=== PATIENT | male | born 1960 | race Caucasian/White ===

== ENCOUNTER 2016-07-25 10:55 | Emergency (ER) ==
[2016-07-25 11:04] VITALS: BP 122/75
[2016-07-25 11:26] LABS: MANUAL DIFF NEEDED? NO
[2016-07-25 11:27] LABS: BASO% 0.2 % (0.0-0.8); EOS# 0.08 X1000 (0.0-0.7); EOS% 0.5 % (0.0-10.0); HEMATOCRIT 42.1 % (42.0-52.0); HEMOGLOBIN 14.9 g/dL (14.0-18.0); IMM GRAN# 0.26 X1000 (0.0-0.04); IMM GRAN% 1.6 % (0.0-0.5); LYMPH% 8.1 % (20.5-51.1); MCH 31.2 PG (27-31); MCHC 35.4 g/dL (33-37); MCV 88.1 FL (81-99); MONO% 7.4 % (1.7-9.3); MPV 7.9 FL (7.4-10.4); NEUT% 82.2 % (42.2-75.2); PLT 323 X1000 (130-400); RBC 4.78 XMIL (4.7-6.1)
--- NOTE | 2016-07-25 11:56 | PROVIDER DOCUMENTATION ---
HPI-Respiratory General - General Source: patient - History of Present Illness-Resp Onset/Duration: reports: 1 week ago Timing: reports: still present Cough Quality/Degree: reports: mild, productive cough Associated Symptoms: reports: cough. denies: short of breath, wheezing <Melanie Roland - Last Filed: 07/25/16 14:02> <Anders Camargo - Last Filed: 07/25/16 14:07> - General Chief Complaint: Cough Stated Complaint: COLD SX Time Seen by Provider: 07/25/16 11:51 Allergies/Adverse Reactions: Patient Allergies Allergy/AdvReac Type Severity Reaction Status Date / Time No Known Allergies Allergy Verified 10/15/14 10:30 Home Medications: Home Medication List Medication Instructions Recorded Confirmed Last Taken Type Lamotrigine [Lamictal Xr] 400 mg PO BID 09/20/14 10/15/14 10/14/14 History Levetiracetam [Keppra] 2,000 mg PO BID 09/20/14 10/15/14 10/14/14 History Oxcarbazepine 900 mg PO TID 09/20/14 10/15/14 10/14/14 History Phenobarbital 97.2 mg PO BID 09/20/14 10/15/14 10/14/14 History Permethrin 5% Cream [Elimite 5% 60 gm .SEE ORDER NOW #1 tube 10/15/14 Unknown Rx Cream] Acetaminophen with Codeine 1 each PO Q6H PRN PRN #30 tablet 07/25/16 Unknown Rx [Tylenol with Codeine #3 Tablet] Sulfamethoxazole/Tmp D.s. [Septra 1 each PO BID #20 tablet 07/25/16 Unknown Rx Ds] - History of Present Illness-Resp Nature of Presenting Problem: 56 yo M presents to the ER with complaint of nasal congestion, chest congestion , and cough x1 week. Has a hx of COPD. (Melanie Roland) Review of Systems - Adult - REVIEW OF SYSTEMS - ADULT Constitutional: denies: chills, fever Eyes: reports: no symptoms reported Ears, Nose, Mouth & Throat: denies: ear pain, throat swelling Cardiovascular: denies: chest pain, palpitations Respiratory: reports: cough. denies: shortness of breath, wheezing Gastrointestinal: reports: no symptoms reported Genitourinary: reports: no symptoms reported Musculoskeletal: reports: no symptoms reported Integumentary: reports: no symptoms reported Neurological: reports: no symptoms reported Psychiatric: reports: no symptoms reported Endocrine: reports: no symptoms reported Hematologic/Lymphatic: reports: no symptoms reported Allergic/Immunologic: reports: no symptoms reported All Other Systems: Reviewed and Negative <Melanie Roland - Last Filed: 07/25/16 14:02> Past History - Adult - PAST MEDICAL HISTORY-ADULT Review of Records: reports: Nursing Assessment Review, Medications Reviewed, Social history reviewed & non-contributory. Respiratory: reports: COPD Neurological: reports: Seizures/Epilepsy - PRIOR SURGERIES/PROCEDURES Surgical/Procedure History: reports: none - IMMUNIZATION STATUS Childhood Immunizations: See Nurse Assessment Flu Vaccine: See Nurse Assessment - SOCIAL HISTORY Smoking: cigarettes Provider spent 3-5 mins advising pt. on dangers of tobacco.: Discussed manners to quit use, and f/u contacts for add'l counseling. <Melanie Roland - Last Filed: 07/25/16 14:02> Physical Exam-General - PHYSICAL EXAM-ADULT Initial Vital Signs Reviewed: Yes - CONSTITUTIONAL General Appearance: appears well, alert - EYES Eyes: PERRL/EOMI, pink conjunctivae - HEAD, EARS, NOSE, MOUTH & THROAT HENMT: normocephalic/atraumatic, normal ENT inspection - NECK Neck: non-tender, supple, normal inspection - RESPIRATORY Respiratory: no respiratory distress, decreased breath sounds - CARDIOVASCULAR Cardiovascular: normal peripheral pulses, regular rate, rhythm - MUSCULOSKELETAL Back Exam: no CVA tenderness, no vertebral tenderness Extremity: normal gait, normal inspection - SKIN Integumentary: normal color, warm/dry - NEUROLOGIC Neurologic: grossly normal, no motor/sensory deficits - PSYCHIATRIC Psych/Mental Status: normal mood/affect, normal thought content, normal thought process, oriented x 3 <Melanie Roland - Last Filed: 07/25/16 14:02> Progress - XRAY 1 XRAY Study: other (sinus) Impression: Normal (negative, per radiologist) 2 XRAY Study: Chest Impression: Normal (NAD, likely mild COPD, per radiologist) <Melanie Roland - Last Filed: 07/25/16 14:02> <Anders Camargo - Last Filed: 07/25/16 14:07> - PLAN OF CARE/RESULTS Progress/Plan/Lab Results: Vital Signs Temp Pulse Resp BP Pulse Ox 07/25/16 11:02 97.6 F 120 H 18 122/75 96 No Known Allergies Allergy (Verified 10/15/14 10:30) Lamotrigine [Lamictal Xr] 400 mg PO BID 09/20/14 Levetiracetam [Keppra] 2,000 mg PO BID 09/20/14 Oxcarbazepine 900 mg PO TID 09/20/14 Phenobarbital 97.2 mg PO BID 09/20/14 Permethrin 5% Cream [Elimite 5% Cream] 60 gm .SEE ORDER NOW #1 tube 10/15/14 Laboratory 07/25/16 07/25/16 11:10 11:10 WBC 16.14 H RBC 4.78 Hgb 14.9 Hct 42.1 MCV 88.1 MCH 31.2 H MCHC 35.4 RDW Std Deviation 13.4 Plt Count 323 MPV 7.9 Immature Gran % (Auto) 1.6 H Neut % (Auto) 82.2 H Lymph % (Auto) 8.1 L Marin % (Auto) 7.4 Eos % (Auto) 0.5 Baso % (Auto) 0.2 Immature Gran # (Auto) 0.26 H Neut # (Auto) 13.26 H Lymph # (Auto) 1.30 Marin # (Auto) 1.20 H Eos # (Auto) 0.08 Baso # (Auto) 0.04 Sodium 122 L Potassium 4.3 Chloride 85 L Carbon Dioxide 21 L Anion Gap 16 BUN 3 L Creatinine 0.5 L Estimated GFR/1.73 m2 > 60 BUN/Creatinine Ratio 6 Glucose 111 H Calculated Osmolality 243 Calcium 9.2 Total Bilirubin 0.50 AST 29 ALT 40 Alkaline Phosphatase 226 H Total Protein 7.5 Albumin 4.4 Globulin 3.0 Albumin/Globulin Ratio 1.0 Orders Category Date Time Status CHEST-2 VIEWS [RAD] Stat Exams 07/25/16 11:09 Draft SINUSES KYLE VIEW ONLY [RAD] Stat Exams 07/25/16 12:45 Taken CBC WITH DIFF [HEME] Stat Lab 07/25/16 11:10 Completed COMPREHENSIVE METABOLIC PANEL [CHEM] Stat Lab 07/25/16 11:10 Completed Spoke with Pharmacist and stated that triliptol causes hyponatremia (Melanie Roland) Departure - Departure Time of Disposition Order: 14:04 Certified Medical Emergency: Emergent <Melanie Roland - Last Filed: 07/25/16 14:02> - Departure Time of Disposition Order: 14:06 Certified Medical Emergency: Emergent <Anders Camargo - Last Filed: 07/25/16 14:07> - Departure DIAGNOSIS: Chronic hyponatremia, Seizure disorder Chronic bronchitis Qualifiers: Chronic bronchitis type: unspecified Qualified Code(s): J42 - Unspecified chronic bronchitis Disposition: HOME 01 Condition: Stable Prescriptions: Acetaminophen with Codeine [Tylenol with Codeine #3 Tablet] 1 each PO Q6H PRN PRN #30 tablet PRN Reason: Pain Sulfamethoxazole/Tmp D.s. [Septra Ds] 1 each PO BID #20 tablet Referrals: Blas Diaz MD [Primary Care Provider] - Attestation - Scribe Verification/Attestation Scribe:: Melanie Roland Acting as Scribe for:: Anders Camargo Scribe documention review:: This chart was documented by a scribe and accurately reflects the service the provider performed and the decisions made by the provider. <Melanie Roland - Last Filed: 07/25/16 14:02> Physician Attestation
[2016-07-25 11:58] LABS: AGAP 16; ALBUMIN 4.4 g/dL (3.5-5.0); ALKALINE PHOSPHATASE 226 U/L (32-122); BUN 3 mg/dL (8-22); CALCIUM 9.2 mg/dL (8.8-10.2); CHLORIDE 85 mmol/L (98-107); COSMO 243; GOT 29 U/L (10-34); GPT 40 U/L (10-44); POTASSIUM 4.3 mmol/L (3.5-5.1); SODIUM 122 mmol/L (136-145); TCO2 21 mmol/L (25-35); TOTAL PROTEIN 7.5 g/dL (6.3-8.3)
--- NOTE | 2016-07-25 12:39 | Diag Imaging Result Document ---
PROCEDURE NAME: CHEST-2 VIEWS - 07/25/2016 PA AND LATERAL RADIOGRAPH OF THE CHEST: COMPARISON: 09/27/2014. FINDINGS: The lungs appear somewhat hyperinflated suggestive of COPD, stable. The lungs are clear otherwise. There is no definite pleural fluid collection. Cardiac silhouette and central vasculature are grossly unremarkable. IMPRESSION: Likely mild COPD that is stable. No definite acute pathology.
--- NOTE | 2016-07-25 14:41 | Diag Imaging Result Document ---
PROCEDURE NAME: SINUSES GARG VIEW ONLY - 07/25/2016 SINGLE GARG VIEW OF THE PARANASAL SINUSES: COMPARISON: None available. FINDINGS: The paranasal sinuses appear to be grossly clear. No definite air-fluid levels are identified. The mastoid air cells are grossly clear. Surrounding bony structures are grossly intact. IMPRESSION: Grossly unremarkable Garg view of the paranasal sinuses.
== END 2016-07-25 14:27 | disposition home or self-care (01) ==
LOC: P.ED 10:55
DX: J42 Unspecified chronic bronchitis (principal); E87.1 Hypo-osmolality and hyponatremia; R56.9 Unspecified convulsions; R05 Cough; R09.3 Abnormal sputum; R09.81 Nasal congestion; R09.89 Other specified symptoms and signs involving the circulatory and respiratory systems; J44.9 Chronic obstructive pulmonary disease, unspecified; F17.210 Nicotine dependence, cigarettes, uncomplicated; Z79.899 Other long term (current) drug therapy; Z71.6 Tobacco abuse counseling
CPT/HCPCS: 70210; 71020; 80053; 85025; 99283